=== PATIENT | female | born 1965 | race Caucasian/White ===

== ENCOUNTER → 2020-06-03 09:38 | Outpatient (CLI) | payer OTHER, BC, SELFPAY ==
[2020-06-03 19:04] LABS: SARS-CoV-2 RNA PCR Positive
== END ==
PROVIDERS: PCP Physician Assistant; Visit Provider Physician Assistant
DX: U07.1 COVID-19 (principal)
CPT/HCPCS: C9803; U0003; U0005

== ENCOUNTER 2024-05-18 16:06 | Emergency (ER) | payer OTHER, SELFPAY ==
--- NOTE | ~2024-05-18 | XR_ITS ---
XR hand LT min 3V 05/18/2024 16:43 Indication: Crush injury second and third distal phalanges Procedure: 3 views left hand Comparison: No prior studies for comparison. Findings: There is anatomic alignment. There is mild polyarticular osteoarthritis. No fracture, sublu xation or dislocation. There is mild soft tissue swelling of the third phalanx. No foreign bodies. Impression: 1: No acute bone or joint abnormality. Reviewed, dictated and finalized at location B. Impression: 1: No acute bone or joint abnormality.
[2024-05-18 16:15] VITALS: BP 137/67; PULSE 58; RESP 16; TEMP 36.6; O2SAT 100
--- NOTE | 2024-05-18 16:30 | ED.UPPEXIN ---
HPI - Extremity Injury (Upper) General Chief Complaint: Extremity Injury, Upper Stated Complaint: Injured Fingers Time Seen by Provider: 05/18/24 16:18 Source: patient and RN notes reviewed Mode of arrival: ambulatory Limitations: no limitations History of Present Illness HPI narrative: Patient presents today complaining of injury to her left 2nd and 3rd fingers. Just prior to arrival she slammed them in her car door. Denies numbness or tingling. No [id number] treatment prior to arrival. Related Data Home Medications ?Medication ?Instructions ?Recorded ?Confirmed ?Last Taken ?Type No Home Medications 02/15/19 02/23/19 Unknown History Allergies Allergy/AdvReac Type Severity Reaction Status Date / Time No Known Allergies Allergy Verified 05/18/24 16:24 Review of Systems Review of Systems: CONSTITUTIONAL: Denies body aches, fever, chills, or sweats. EYES: Denies visual changes, redness, or discharge. ENT: Denies rhinorrhea, congestion, sore throat, or otalgia. CARDIOVASCULAR: Denies chest pain, palpitations, or edema. RESPIRATORY: Denies cough or dyspnea. GASTROINTESTINAL: Denies abdominal pain, nausea, vomiting, or diarrhea. GENITOURINARY: Denies dysuria or hematuria. SKIN: Denies rash, itching, or wounds. MUSCULOSKELETAL: + finger injuries NEUROLOGIC: Denies headache, numbness, tingling, or weakness. PSYCH: Denies depression or anxiety. [facility] Past Medical History Medical History Healthy adult Comments At time of signature, I have reviewed and agree with nursing past medical, surgical, social and family history unless otherwise noted. Please see nursing chart for further information. There is no relevant family history pertinent to the presenting complaint Exam Narrative: GENERAL: Well-appearing, well-nourished, and in no acute distress. HEAD: Normocephalic, atraumatic. EYES: EOMI. No redness or drainage. Conjunctivae normal. ENT: Mucous membranes pink and moist. NECK: Normal AROM. CHEST: No respiratory distress. EXTREMITIES: Left hand: 2nd and 3rd distal phalanx edematous and ecchymotic with tenderness to palpation. Both fingernails have mild subungual hematomas proximally. Distal sensation intact. Capillary refill normal. Full range of motion with increased pain. See procedure note SKIN: Warm, dry, no rash. Capillary refill normal. Normal skin turgor. NEURO: No focal deficits. Alert and oriented x3. Gait steady. PSYCH: Normal affect. No signs of depression or anxiety. Course Course Level of Care: Express Care Visit Vital Signs Vital signs: Vital Signs Temperature 97.9 F 05/18/24 16:15 Pulse Rate 58 L 05/18/24 16:15 Respiratory Rate 16 05/18/24 16:15 Blood Pressure 137/67 05/18/24 16:15 Pulse Oximetry 100 05/18/24 16:15 Temperature 97.9 F 05/18/24 16:15 Pulse Rate 58 L 05/18/24 16:15 Respiratory Rate 16 05/18/24 16:15 Blood Pressure 137/67 05/18/24 16:15 Pulse Oximetry 100 05/18/24 16:15 Reviewed Procedures Nail Trephination Nail Trephination #1: Nail Trephination Date: 05/18/24 Nail Trephination Time: 16:30 Location (finger): left (2nd and 3rd) Sterile prep: chlorhexidine Method of drainage: nail cautery Procedure successful: Yes Patient tolerated procedure: well MDM - Extremity Injury (Upper) MDM Narrative Medical decision making narrative: X-rays negative for fracture. Patient's fingernail have been drained and dressed. Care instructions given. Anticipatory guidance given. Differential Diagnosis Differential diagnosis: Likely other (Finger fracture, contusion, subungual hematoma) Imaging Data Radiologist's impression: ITS Impressions Hand X-Ray 05/18/24 16:47 Impression: 1: No acute bone or joint abnormality. Critical Care Time Critical Care Time Critical Care Time: No Discharge Plan Discharge Clinical Impression: Crushing injury of finger(s) Qualifiers: Encounter type: initial encounter Qualified Code(s): S67.10XA - Crushing injury of unspecified finger(s), initial encounter Patient Disposition: Home, Self-Care Condition: Stable Instructions: Subungual Hematoma (ED) Additional Instructions: Your finger x-rays are negative for fracture. Elevate and ice your fingers. The bruising will resolve with time. The blood underneath your finger nails has been drained. Take Tylenol or ibuprofen for pain if needed. Follow-up with your PCP next week with any concerns. Your blood pressure was elevated above 120/80 today at Urgent Care. This puts you above the threshold for follow up. Please schedule a followup visit with your personal physician as soon as possible, for further evaluation and treatment. Even blood pressure exceeding 120/80 may indicate pre-hypertension. Patient Language: Armenian Prescriptions: No Action No Home Medications Follow-up/Referrals: PHYSICIAN,ASSEMBLY CLEANER [Primary Care Provider] - Time of Disposition: 16:59
== END 2024-05-18 17:32 | disposition home or self-care (01) ==
PROVIDERS: Emergency Provider Nurse Practitioner
DX: S67.191A Crushing injury of left index finger, initial encounter (principal); S67.193A Crushing injury of left middle finger, initial encounter; V48.3XXA Unspecified car occupant injured in noncollision transport accident in nontraffic accident, initial encounter
CPT/HCPCS: 11740 ×2; 73130; 99213; G0463